=== PATIENT | male | born 1965 | race Caucasian/White ===

== ENCOUNTER 2023-11-28 21:02 | Emergency (ER) | payer SELFPAY ==
--- NOTE | 2023-11-28 21:14 | PHANOTE ---
Med Rec Note:
Confirmed medications came from bag of medications that arrived with pt and dr greenfield. Unconfirmed medications only provided by Dr Greenfield. Unable to interview pt due to agitation.
[2023-11-28 21:16] VITALS: BP 152/91
--- NOTE | 2023-11-29 01:43 | ED.GENMED ---
History of Present Illness
General
Chief Complaint: Crisis Evaluation
Source: patient
Exam Limitations: none
Time Seen by Provider: 11/28/23 21:27
Nursing documentation reviewed up to this point in time: agreed with
Travel History
Have you had any contact with someone who has COVID-19?: No
Do you have any symptoms of coronavirus? Fever > 100 degrees, chills, cough, shortness of breath, sore throat, loss of taste or smell, muscle aches, or headache?: No
History of Present Illness
History of Present Illness:
Patient with history of bipolar disorder, presents to ED from home for evaluation secondary to increased agitation noted by his spouse. Upon arrival, patient admits to not having taken his medications for the past couple weeks, as medications were
not making him feel well. However, patient denies suicidal or homicidal ideation. Denies recent illness. Denies headache. Denies dizziness. Denies loss of appetite.
Past History
Social History
Tobacco: Smoker
Alcohol: Binge drinker
Drug: None
Personal:
Living: with family
Employment: Employed
Family History
Family History: Other (Mental illness)
Review of Systems
Review of Systems
Allergies reviewed?: Yes
All Other Systems: ROS reviewed and negative except as documented in HPI and ROS
Constitutional: Reports no symptoms
EENT: Reports no symptoms
Respiratory: Reports no symptoms
Cardiac: Reports no symptoms
ABD/GI: Reports no symptoms
: Reports no symptoms
Musculoskeletal: Reports no symptoms
Skin: Reports no symptoms
Neurological: Reports no symptoms
Psychiatric: Reports other (Agitation)
Phy Exam
Physical Exam
Physical Exam:
Physical Exam
General: no apparent distress, not acutely ill.
Head: nc/at.
Neck: supple. normal range of motion.
Neuro: alert and oriented. no focal neurological deficits
Skin: no rash
Psychiatric: well kept. interactive. anxious and agitated.
Extremities: no edema.
Course
Orders/Labs/Results
Orders:
Orders
11/28/23 23:56
Crisis Consult Urgent
Reason for Consult: psychosis
Vital Signs
Initial and Last Documented VS:
Initial Vital Signs
BP
152/91
11/28/23 21:16
Last Documented Vital Signs
Pulse BP Pulse Ox
65 152/91 99
11/28/23 21:32 11/28/23 21:16 11/28/23 21:32
MDM/Problems Addressed
MDM/Problems Addressed:
Held long discussion with patient's spouse, Zoey Jay. Explained to the patient that patient's noncompliance and unhappiness with having to stay in ED are not the reason for involuntary commitment for treatment, without any alleged or witnessed
harmful behavior. Spouse confirms that patient has not exhibited any behaviors at home that she feels is putting himself or others at this point. As such, she does not wish to pursue 302 petition filing at this time. She will take the patient home
tonight, as long as pt agrees to resume his medications and seek counseling.
Pt agreed to resume his medications and f/u with therapist as outpatient. As such, patient will be discharged home at this time.
*Critical Care Note
Total Time (30-74mins, 75-104mins- exclusive of procedures): Not Applicable
ED Attending Note
-
Portions of this chart may have been created with voice recognition software.� Occasional wrong word or��sound alike� substitutions may have occurred due to the inherent limitations of voice recognition software.
Discharge Plan
Departure
Patient Disposition: Home (Routine Discharge)
Date of Disposition: 11/29/23
Time of Disposition: 01:43
Patient with high blood pressure during this ER visit?: Yes
Condition: Good
Discharge Problem:
Bipolar disorder
Instructions: Bipolar Disorder (DC)
Prescriptions:
No Action
gabapentin 600 mg tablet
600 mg PO TID
divalproex 250 mg tablet,delayed release (DR/EC)
250 mg PO DAILY
divalproex 500 mg tablet,delayed release (DR/EC)
1,000 mg PO BID
carbamazepine 400 mg tablet extended release 12 hr
400 mg PO BID@0800,1900
carbamazepine 200 mg tablet extended release 12 hr
200 mg PO DAILY@1900
zaleplon 10 mg capsule
10 mg PO QPM PRN (Reason: mid cycle awakening)
lorazepam 1 mg tablet
1.5 mg PO BID@0800,1929
Patient Comments:
11/28/2023: last filled 10/24/23, 90 tabs for 30 days from [facility]
propranolol 20 mg tablet
20 mg PO NOON
ramelteon 8 mg tablet
8 mg PO HS
Quviviq 50 mg tablet
50 mg PO HS
Caplyta 10.5 mg capsule
10.5 mg PO DAILY@1929
Patient Comments:
11/28/2023: last filled 10/24/23, 30 tabs for 30 days from [facility]
Referrals:
UNKNOWN - PT DOES,NOT KNOW [Family Provider] -
Activity Restrictions/Additional Instructions:
As discussed, as soon as you leave the ED tonight, you must resume all your psychiatric medications and establish relationship with a new therapist for continual outpatient evaluation and treatment.
Interventions
Interventions:
*Risk Screen - Suicide Last Done: 11/28/23 21:32
*General Assessment Last Done: 11/28/23 21:32
*Neglect/Abuse Screening Last Done: 11/28/23 21:32
ED- Fall Risk Assessment Last Done: 11/29/23 01:51
*ED COVID-19 Vaccine History Last Done: 11/28/23 21:32
*Nursing Disposition Last Done: 11/29/23 01:51
ED-Psychological Assessment Last Done: 11/28/23 23:06
Discharge Date and Time
Discharge Date/Time: 11/29/23 01:52
== END 2023-11-29 01:52 | disposition home or self-care (01) ==
LOC: EMR 21:02
PROVIDERS: EMERGENCY PHYSICIAN Emergency Medicine
DX: F31.9 Bipolar disorder, unspecified (principal); F17.200 Nicotine dependence, unspecified, uncomplicated; R03.0 Elevated blood-pressure reading, without diagnosis of hypertension; Z91.199 Patient's noncompliance with other medical treatment and regimen due to unspecified reason
CPT/HCPCS: 99283